=== PATIENT | male | born 1970 | race Caucasian/White ===

== ENCOUNTER 2025-03-25 06:00 | Day surgery (SDC) | payer OTHER ==
[~2025-03-25] VITALS: Ht 182.9 cm; Wt 162.7 kg
[~2025-03-25 06:00] MED LIST: ALLEGRA ALLERGY60 MG PO; HYDCHL25 PO; LEVSOD25 PO; METF500 PO; MOUNJARO2.5 MG/0.5 SC; PSEUDOEPHEDRINE30 M1 PO
[2025-03-25] MEDS ORDERED: CeFAZolin Sodium 2,000 MG in NS 100 ML IV SCH (06:20)
[2025-03-25] MEDS ORDERED: CeFAZolin Sodium 3,000 MG in NS 100 ML IV SCH (06:40)
[2025-03-25 06:42] VITALS: BP 135/86
[2025-03-25] MEDS ORDERED: FentaNYL Citrate 50 MCG/ML 2 ML Injection ONE (06:48)
[2025-03-25] MEDS ORDERED: Midazolam HCl 1MG / ML 2ML Vial ONE (06:48)
[2025-03-25] MEDS ORDERED: Rocuronium Bromide 10 MG/ML 5ML Injection IV ONE (06:50)
[2025-03-25] MEDS ORDERED: Bupivacaine 0.5% HCl 5 MG/ML 30MLVIAL ONE ×2 (07:07→07:48)
--- NOTE | 2025-03-25 07:08 | NUR ---
History, Chart, Medications and Allergies reviewed before start of procedure. Pre-Op teaching done. Pt verbalizes understanding. Patient confirms NPO status and agrees with scheduled surgery. Patient reports completing Chlorhexadine shower X2 prior to admission to hospital. Surgical site prepped with 2% Chlorhexidine cloth wipe. Lungs clear T/O to Auscultation. Patient States Post-Procedure ride home has been arranged.
[2025-03-25] MEDS ORDERED: Dexamethasone Sod Phos 10 MG/ML 1ML VIAL ONE (07:41)
[2025-03-25] MEDS ORDERED: Ondansetron HCl 2 MG / ML 2ML Vial ONE (07:41)
[2025-03-25] MEDS ORDERED: Ketorolac Tromethamine 30mg Vial ONE (07:41)
[2025-03-25] MEDS ORDERED: Ondansetron HCl 2 MG / ML 2ML Vial IV PRN (07:55)
[2025-03-25] MEDS ORDERED: FentaNYL Citrate 50 MCG/ML 2 ML Injection IV PRN (07:55)
[2025-03-25] MEDS ORDERED: HYDROmorphone HCl/Pf 1MG SYR IV PRN (07:55)
[2025-03-25] MEDS ORDERED: Sugammadex Sodium 200 MG/2ML SDV (100 MG/ML) ONE (08:05)
[2025-03-25 08:30] VITALS: BP 127/67
[2025-03-25 08:35] VITALS: BP 128/77
[2025-03-25] MEDS ORDERED: OxyCODONE 5 mg/Acetamin 325 mg TABLET PO PRN (08:35)
[2025-03-25 08:40] VITALS: BP 118/77
[2025-03-25 08:50] VITALS: BP 121/79
[2025-03-25 09:05] VITALS: BP 128/82
--- NOTE | 2025-03-25 09:54 | NUR ---
0845 RECEIVES PT FROM PACU, AWAKE RT UPPER BUTTOCKS/FLANK WITH INCISION AND CLEAR WALT DRESSING DRY AND INTACT, SCANT AMT OF RED DRAINAGE UNDER CLEAR DRESSING 0930 DISCHARGED HOME. TO CAR VIA W/C CARE TURNED OVER TO
== END 2025-03-25 09:30 | disposition home or self-care (01) ==
LOC: ORSCMMR 06:00 → ORD 07:30 → ORSCMMR 09:30
PROVIDERS: Surgery
PROC: 0JB70ZX Excision of Back Subcutaneous Tissue and Fascia, Open Approach, Diagnostic (ICD-10-PCS; principal; 2025-03-25 07:30)
DX: L72.3 Sebaceous cyst (principal); E11.9 Type 2 diabetes mellitus without complications; E66.01 Morbid (severe) obesity due to excess calories; Z68.42 Body mass index [BMI] 45.0-49.9, adult; Z79.84 Long term (current) use of oral hypoglycemic drugs; Z79.899 Other long term (current) drug therapy
CPT/HCPCS: 82947; 88304; J0690; J1100; J1885; J2250; J2405; J2704; J3010; J7120